=== PATIENT | male | born 1975 | race Caucasian/White ===

== ENCOUNTER 2019-02-22 14:29 | Inpatient (IN) ==
[2019-02-22] MEDS: SODIUM CHLORIDE 0.9% 1000ML 1,000 ML IV SCH ×5 (17:30→23:54)
--- NOTE | 2019-02-22 17:36 | Critical Care Consultation ---
Date of Consultation February 22, 2019 Assessment & Plan (1) Hypotension: Impression: 1. Acute renal failure, I am suspecting obstructive uropathy in a patient who has been started on monoamino oxidase inhibitor. 2. The patient had a Loaiza catheter placed at the other hospital, I am not sure how much residual the patient did have upon initial insertion. 3. Schizophrenia treated with dopamine agonist, MAO inhibitor, and duloxetine while he is developing renal failure, the results of the imbalance and dizziness could be related to accumulation of these medications as well. 4. Possible superimposed UTI, results of the UA from the other facility supports UTI. 5. So far no significant acidosis or hyperkalemia on the labs from the other facility. Plan: 1. continue with IV fluid. 2. I will hold off mono amino oxidase inhibitor. 3. Keep Loaiza catheter in place. 4. Ceftriaxone for possible UTI. 5. Continue with IV fluid with normal saline at 150 an hour. 6. Taper norepinephrine to off. 7. Renal consult. 8. DVT prophylaxis. 9. Obtain stat labs and chest x-ray. Case discussed with the staff in details, critical care time spent with the patient was 45 minutes. History of Present Illness Reason for Consultation: Acute renal failure Requesting Physician: Dr. Grande Attending Physician: Ruy Grande MD History of Present Illness Dear Dr. Grande: Thank you for the kind referral Mr. Velasquez to critical care service. This is 44-year-old gentleman with history of morbid obesity, schizophrenia, living with his parents, recently the patient had been started on monoamino oxidase inhibitor with Valbenazine, the patient also was treated with duloxetine as well, the patient for the past 2 weeks initially after starting the medication did not have any symptoms however only for the past week started having dizziness and unable to maintain his upright position, he did have what appeared to be syncopal episodes of multiple times and he fell where he did have pain in his back and his neck from falling according to him. The patient brought to [facility] by his parents where he was evaluated and found to be in acute renal failure. The patient started on aggressive fluid resuscitation with almost 8 L of fluid received over his ER stay, the patient's blood pressure was on the low side and has to be started on norepinephrine, the patient was transferred to our institution as they do not have nephrology service. When I interviewed the patient, the patient denies any urinary habits disturbance, he did not feel thirsty, he felt unable to stand up or stay in upright position for the past week or so, no nausea or vomiting reported, his loss of consciousness was quickly recovered after he become in supine position flat on the floor, no chest pain was reported, no swelling in his lower extremities no abdominal pain, and he denies any diarrhea. Review of system otherwise was unremarkable. He did not have any bruises on his skin and no rash. 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 Physical Exam Physical Exam: Physical exam reveals well-built gentleman, does not appear to be in any distress, he has no nystagmus or pupil asymmetry, dry mucosa noted, no JVD, he was wearing hard neck collar which was removed, heart examination S1-S2 regular rate and rhythm, distant breath sounds bilaterally, abdomen is benign, no edema in the periphery, Loaiza catheter in place, neurologically he has no tremor or asterixis. No skin rash. Results & Data Vital Signs (Past 12 Hours) Vital Signs Temp Pulse Resp BP Pulse Ox 02/22/19 17:15 37.2 C 88 20 129/72 91 Laboratory Results Labs from outside hospital showed leukocytosis 16,000, BUN and creatinine with creatinine of 8. Potassium and bicarb has been maintained. Diagnostic Findings I do not have imaging on him at this point, pending further evaluation.
--- NOTE | 2019-02-22 17:58 | XRay Report ---
XR chest 1V portable CLINICAL HISTORY: fluid overload dyspnea COMPARISON STUDY: No previous studies for comparison. FINDINGS: The bones soft tissues and hemidiaphragms are normal. The cardiomediastinal silhouette is n ormal. The lungs are clear. The pulmonary vasculature is normal. IMPRESSION: Negative chest. The above report was generated using voice recognition software. It may contain grammatical, syntax or spelling errors. Electronically signed by: Cl Galvez M.D. 02/22/2019 5:56 PM
--- NOTE | 2019-02-22 18:11 | History & Physical Report ---
Date of Service February 22, 2019 Assessment & Plan (1) Acute renal failure: Unclear cause, though patient appeared clinically dry at [facility] ED. BUN:Cr ratio was 10:1, and FeNa was 2.0%, both indicating intrinsic disease. Renal u/s on 02/22 at [facility] did not show hydronephrosis. On admission, there was no need for urgent dialysis, and he had good urine output. - Received 8L IV fluids at [facility] - Continue IV fluids per pulm/cc - Nephrology consult - Urine eosinophils - CK (some concern for neuromalignant syndrome from his antipsychotics) (2) Hypotension: Per the ED provider at [facility], on admission, his systolic BP was in the 60s. After 8L IV fluids, he still had SBP in the 80s, and was started on pressors. Presently on 0.05 mcg/kg/min of Levophed with BP of 130/80. - Ddx includes his MAOI (noted side effect of all MAOIs), significant dehydration, septic shock from possible UTI or other infectious source. - Continue pressors, wean as able - Hold Ingrezza - CXR pending - Follow up cultures from [facility] (urine and blood) (3) UTI (urinary tract infection): UA on 02/22 at [facility] showed signs of urinary infection. - Repeat UA here - Follow up [facility] culture - Ceftriaxone (4) Hypertension: Hold lisinopril while hypotensive. (5) Schizophrenia: On variety of meds as outpatient. - Continue home meds apart from antipsychotic & valbenazine (Ingrezza) - Monitor schizophrenia symptoms (6) DVT prophylaxis: SCDs - Low risk per admission calculator History of Present Illness Primary Care Provider: Ramiro Rubio 44-year-old male with a history of depression and schizophrenia who presents with hypotension and acute renal failure. The patient notes that he has been in his normal state of health, and was started on Ingrezza approximately 2 weeks ago. This was started for his lower extremity dyskinesia which is a result of his antipsychotic medications. Approximately 1 week ago, he reports feeling increasingly tired, fatigued, dizzy, and has had several falls with possible loss of conscious. He also reports stiff muscles and subjective fevers at home. He denies any exacerbating or ameliorating factors. He feels his p.o. intake may have been lower over the last few days. He reports no shortness of breath, no chest pain, no nausea, no vomiting, no other major concerns. In the [facility] ED, he was noted to have a Cr of 8.5 from normal. His SBP was in the 60s in the ED. He received upwards of 8L of IV fluids with some urine output. After the IV fluids, his BP was still only in the 80s, and he was started on Levophed. Allergies Allergy/AdvReac Type Severity Reaction Status Date / Time Penicillins Allergy Unknown UNKNOWN Unverified 12/03/09 04:18 Home Medications Home Medications Medication Instructions Recorded Confirmed Type Prilosec OTC 20 mg PO DAILY 02/22/19 02/22/19 History aspirin 81 mg PO DAILY 02/22/19 02/22/19 History bupropion HCl 150 mg PO DAILY 02/22/19 02/22/19 History diphenhydramine HCl 25 mg PO TID PRN 02/22/19 02/22/19 History duloxetine 30 mg PO HS 02/22/19 02/22/19 History duloxetine 60 mg PO HS 02/22/19 02/22/19 History gabapentin 800 mg PO TID 02/22/19 02/22/19 History guanfacine 2 mg PO QAM 02/22/19 02/22/19 History lisinopril 20 mg PO DAILY 02/22/19 02/22/19 History oxycodone 5 mg PO Q12H PRN 02/22/19 02/22/19 History oxycodone myristate [Xtampza ER] 13.5 mg PO Q12H PRN 02/22/19 02/22/19 History propranolol 80 mg PO DAILY 02/22/19 02/22/19 History quetiapine 400 mg PO HS 02/22/19 02/22/19 History Past Med/Surg History Medical History Depression Schizophrenia Family History Father Hypertension Social History Preferred Language: [place] African Communication Ability: Effective 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 Beliefs That Will Affect Care: None Current Living Situation: Parent Other Information That Helps Us Care for You: No Feels Safe at Home: Yes Safety Concerns: Feels Safe At This Time Smoking Status: Former smoker Hx Alcohol Use: No Hx Substance Use: No Review of Systems Constitutional: + fever, + body aches, + fatigue, + weakness and + anorexia; no chills and no sweats Eyes: no diplopia Ear, Nose, Mouth, Throat: no ear trauma, no nasal discharge and no dental pain Respiratory: no cough, no chest congestion and no dyspnea Cardiovascular: no chest pain, no dyspnea on exertion, no palpitations and no syncope Gastrointestinal: no abdominal pain, no belching, no constipation, no diarrhea/loose stools, no blood in stools and no melena Musculoskeletal: no back pain, no joint pain and no muscle weakness Integumentary: no rash, no skin ulcer and no erythema Neurologic: no generalized weakness, no loss of sensation, no numbness and no paresthesia Psychiatric: no depression and no anxiety Endocrine: no fatigue, no polydipsia and no polyphagia Physical Exam Constitutional: WD/WN, vitals as above Eyes: EOM intact bilaterally; no conjunctival abnormality ENMT: external ear and nose normal, oropharynx normal Neck: trachea midline, no thyromegaly normal visual inspection Respiratory: normal respiratory effort, lungs clear to auscultation no respiratory distress Cardiovascular: RRR, no murmur, no edema Gastrointestinal (Abdomen): Inspection/Auscultation: abdomen normal to inspection; abdomen not distended Musculoskeletal: no cyanosis or clubbing, extremities motor strength 5/5 Skin: no rashes, warm and dry Neurologic: moves all extremities and awake Psychiatric: Orientation: alert, oriented to person and cooperative Results & Data Vital Signs (Past 12 Hours) Vital Signs Temp Pulse Resp BP Pulse Ox 02/22/19 17:30 97 H 132/71 02/22/19 17:15 37.2 C 88 20 129/72 91
[2019-02-22] MEDS ORDERED: NOREPINEPHRINE BIT INJ 8 MG in DEXTROSE 5% 500 ML IV SCH (18:15)
[2019-02-22 18:52] LABS: Appearance Urine Clear (Clear); Bacteria Urine Automated Negative (Negative); Bilirubin Urine Negative (Negative); Blood Urine 2+ (Negative); Color Urine Yellow; Glucose Urine UA Negative (Negative); Ketones Urine Negative (Negative); Leukocyte Esterase Urine Negative (Negative); Nitrite Urine Negative (Negative); Protein Urine Negative (Negative); RBC Urine Automated 0-4 /hpf (0-4); Specific Gravity Urine 1.012 (1.000-1.030); Urobilinogen Urine Negative (Negative)
[2019-02-22 19:04] LABS: Basophils # (auto) 0.02 K/uL (0-0.2); Basophils % (auto) 0.2 %; Eosinophils # (auto) 0.27 K/uL (0-0.5); Eosinophils % (auto) 2.4 %; Hematocrit (blood only) 44.7 % (42-52); Hemoglobin 15.6 g/dL (14.0-18.0); Immature Granulocytes # (auto) 0.08 K/uL (0.00-0.02); Immature Granulocytes % (auto) 0.7 %; Lymphocytes # (auto) 2.46 K/uL (1.2-3.4); Lymphocytes % (auto) 22.3 %; Mean Corpuscular Volume 88.3 fL (80-100); Mean Platelet Volume 10.2 fL (7.4-10.4); Monocytes # (auto) 1.25 K/uL (0.11-0.59); Monocytes % (auto) 11.3 %; Neutrophils # (auto) 6.96 K/uL (1.4-6.5); Neutrophils % (auto) 63.1 %; Platelet Count 139 K/uL (130-400); RDW Coefficient of Variation 13.8 % (11.5-14.5); RDW Standard Deviation 44.4 fL (36.4-46.3); Red Blood Count 5.06 M/uL (4.7-6.1); White Blood Count 11.04 K/uL (4.8-10.8)
[2019-02-22 19:05] LABS: Mean Corpuscular Hgb Conc 34.9 g/dL (32-36)
[2019-02-22 20:00] LABS: BUN Creatinine Ratio 10.7 (10-20); Creatinine Clr Calc Pharmacy 20.3 ml/min; Est GFR (African American) 11.9; Est GFR (Non-African American) 10.3; Potassium 5.7 mmol/L (3.5-5.1)
[2019-02-22] MEDS ORDERED: NovoLIN-R INSULIN PER UNIT CHARGE IV STA (20:07)
[2019-02-22] MEDS ORDERED: INSULIN HUMAN REGULAR PER UNIT 10 UNITS in SYRINGE 9.9 ML IV ONE (20:30)
[2019-02-22] MEDS ORDERED: DEXTROSE 50% 50 ML SYRINGE IV ONE (20:30)
[2019-02-22] MEDS ORDERED: CALCIUM GLUCONATE 10% 2,000 MG in SODIUM CHLORIDE 0.9% 50 ML IV ONE (20:30)
[2019-02-22] MEDS: GABAPENTIN 600 MG TAB PO SCH (21:54)
[2019-02-22] MEDS: DULOXETINE HCL 30 MG CAP PO SCH (21:54)
[2019-02-23 00:21] LABS: BUN Creatinine Ratio 12.1 (10-20); Calcium 7.5 mg/dl (8.5-10.1); Creatinine Clr Calc Pharmacy 26.2 ml/min; Est GFR (African American) 16.1; Est GFR (Non-African American) 13.9; Phosphorus 4.8 mg/dl (2.5-4.9)
[2019-02-23] MEDS: SODIUM CHLORIDE 0.9% 1000ML 1,000 ML IV SCH ×11 (00:24→08:22)
[2019-02-23 04:51] LABS: Hematocrit (blood only) 38.5 % (42-52); Hemoglobin 13.4 g/dL (14.0-18.0); Mean Corpuscular Hgb Conc 34.8 g/dL (32-36); Mean Corpuscular Volume 88.7 fL (80-100); Mean Platelet Volume 9.9 fL (7.4-10.4); Platelet Count 146 K/uL (130-400); RDW Coefficient of Variation 13.8 % (11.5-14.5); RDW Standard Deviation 44.9 fL (36.4-46.3); Red Blood Count 4.34 M/uL (4.7-6.1); White Blood Count 10.01 K/uL (4.8-10.8)
[2019-02-23 05:17] LABS: BUN Creatinine Ratio 14.5 (10-20); Creatinine Clr Calc Pharmacy 40.4 ml/min; Est GFR (African American) 27.3; Est GFR (Non-African American) 23.6; Magnesium 1.6 mg/dl (1.8-2.4); Phosphorus 2.6 mg/dl (2.5-4.9); Potassium 5.7 mmol/L (3.5-5.1)
[2019-02-23] MEDS ORDERED: DESMOPRESSIN ACETATE 4 MCG in SODIUM CHLORIDE 0.9% 50 ML IV STA (06:22)
[2019-02-23] MEDS ORDERED: CALCIUM GLUCONATE 10% 2,000 MG in SODIUM CHLORIDE 0.9% 50 ML IV STA (06:39)
[2019-02-23] MEDS: MAGNESIUM SULFATE / D5W 1 GM/100 ML BAG IV SCH ×2 (07:35→08:21)
[2019-02-23] MEDS: DULOXETINE HCL 30 MG CAP PO SCH ×2 (07:37→20:23)
[2019-02-23] MEDS: ASPIRIN 81 MG ECTAB PO SCH (07:37)
[2019-02-23] MEDS: BuPROPion XL 150 MG TABCR PO SCH (07:37)
[2019-02-23] MEDS: GABAPENTIN 600 MG TAB PO SCH ×3 (07:38→20:23)
[2019-02-23] MEDS: ACETAMINOPHEN 325 MG TAB PO PRN (07:39)
[2019-02-23] MEDS: SODIUM CHLORIDE 0.45 % 1,000 ML IV SCH ×3 (08:39→23:22)
[2019-02-23 09:10] LABS: BUN Creatinine Ratio 15.7 (10-20); Calcium 7.3 mg/dl (8.5-10.1); Creatinine Clr Calc Pharmacy 49.5 ml/min; Est GFR (African American) 35.6; Est GFR (Non-African American) 30.8; Potassium 5.4 mmol/L (3.5-5.1)
--- NOTE | 2019-02-23 09:57 | Nephrology Consultation ---
Date of Consultation February 23, 2019 Assessment & Plan (1) Polyuria: - DDAVP provided this morning at 6 AM - Urine output does not seem to have changed in response to medication - Polydipsia and large volume oral intake denied - Suspect polyuria may be related to post obstructive diuresis with subsequent solute diuresis from large volume saline replacement - IVF switched to 1/2 NS this AM - Suggest continuing at a reduced rate of 100 ml/hr - Allow serum sodium to approach 145 mmol/L - Repeat blood work and urine studies at noon (2) Acute renal failure: - Initial presentation reported as prerenal due to dehydration - Volume status currently appears euvolemic - Possible component of obstructive nephropathy or prerenal which is improving, possible superimposed ATN - Loaiza to gravity - Document strict I/O's - Repeat metabolic profile at noon - Low potassium diet - If HCO3 continues to fall consider replacement - CK slightly elevated and given symptoms we cannot completely exclude neuromalignant syndrome or medication reaction - Hold lisinopril (3) Hypotension: - Hold Ingrezza - Hold guanfacine and lisinopril as well as propranolol - (4) UTI (urinary tract infection): - Culture results pending - Ceftriaxone (5) Schizophrenia: - Quetiapine and Ingrezza held - Consider psych consult to assist with management as patient medically stabilizes History of Present Illness Reason for Consultation: ABI, polyuria Requesting Physician: Ruy Grande MD Attending Physician: Curtis Rosas MD History of Present Illness Mr. Caesar Velasquez is a 44-year-old male who was seen and evaluated in the ICU this morning. The case was discussed in detail with Dr. Medrano. Mr. Velasquez's medical history is notable for hypertension, depression, and schizophrenia. He was transferred to [facility] yesterday evening from the ER at [facility] due to ABI. There are no weekend nephrology services available at [place]. The patient initially presented to the ED with fatigue, dizziness, and several falls. He notes that he has experienced dizziness and unsteadiness on his feet for several weeks. He denies any significant injury from falling. He has not injured his head. He has not lost consciousness. Ingrezza was started approximately 2 weeks ago. Reportedly, the medication was started for his lower extremity dyskinesia. Home medications include multiple psychiatric therapies including duloxetine, bupropion, and quetiapine. Several other medications for blood pressure and dyskinesia which also may contribute to some of his symptoms include propranolol, guanfacine, and lisinopril. His symptoms have been worsening over hte past week. Caesar also reported stiff muscles and subjective fevers at home. The patient denies significant polydipsia at home. He notes that his appetite has been reduced. His urine output was reduced prior to presentation to the ED. Daily fluid intake typically includes one pot of coffee per day as well as 1-2 glasses of juice. He notes the urge to void with a sense of some urinary retention. He also described some lightheadedness associated with voiding urine. In the [facility] ED, he was noted to have a Cr of 8.5 from normal. Loaiza catheter was placed with a reported history of 1 L of urine. His SBP was in the 60s in the ED. He received upwards of 8L of IV fluids. After the IV fluids, he remained hypotensive, and he was started on Levophed prior to transfer. Levophed was weaned off following additional IVF replacement in the ICU at [facility]. Agressive IVF replacement has been continued with NSS since admission. Urine output has remained polyuric with a total of 20 L documented since admission. Urine osmolality yesterday evening was 248. IVF has been provided to match UOP. An additional 10 + liters have been provided since admission. Levophed was briefly restarted overnight and weaned off around midnight. Blood pressure remains low but acceptable off vasopressor support this morning. Telemetry demonstrating sinus rhythm at approximately 100-110 bpm. Ron feels reasonably well this morning. He continues to experiences some lightheadedness. Loaiza is draining dilute appearing urine. He denies any fevers or chills overnight. He was started on ceftriaxone for possible UTI. Culture is pending. Repeat urine studies obtained at [facility] were acellular and +blood but otherwise bland. UA was notable for +blood. Microscopy was acellular. CPK was slightly elevated at 561. Creatinine has improved to 2.5 mg/dL. Serum potassium remains slightly elevated at 5.4 mmol/L. HCO3 is slightly low at 18. Urine sodium was elevated at 92 mmol/L. Allergies Allergy/AdvReac Type Severity Reaction Status Date / Time Penicillins Allergy Unknown UNKNOWN Unverified 12/03/09 04:18 Home Medications Home Medications Medication Instructions Recorded Confirmed Type Ingrezza 80 mg PO DAILY 02/22/19 02/22/19 History Prilosec OTC 20 mg PO DAILY 02/22/19 02/22/19 History aspirin 81 mg PO DAILY 02/22/19 02/22/19 History bupropion HCl 150 mg PO DAILY 02/22/19 02/22/19 History diphenhydramine HCl 25 mg PO TID PRN 02/22/19 02/22/19 History duloxetine 30 mg PO HS 02/22/19 02/22/19 History duloxetine 60 mg PO HS 02/22/19 02/22/19 History gabapentin 800 mg PO TID 02/22/19 02/22/19 History guanfacine 2 mg PO QAM 02/22/19 02/22/19 History lisinopril 20 mg PO DAILY 02/22/19 02/22/19 History oxycodone 5 mg PO Q12H PRN 02/22/19 02/22/19 History oxycodone myristate [Xtampza ER] 13.5 mg PO Q12H PRN 02/22/19 02/22/19 History propranolol 80 mg PO DAILY 02/22/19 02/22/19 History quetiapine 400 mg PO HS 02/22/19 02/22/19 History Patient History Medical History Depression Schizophrenia Family History Father Hypertension Social History Preferred Language: Trinidadian Communication Ability: Effective 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 Beliefs That Will Affect Care: None Current Living Situation: Parent Other Information That Helps Us Care for You: No Feels Safe at Home: Yes Safety Concerns: Feels Safe At This Time Smoking Status: Former smoker Hx Alcohol Use: No Hx Substance Use: No Review of Systems Review of Systems: All systems reviewed & are unremarkable except as noted in HPI & below Physical Exam Constitutional: + obese; no acute distress and not edematous Eyes: no conjunctival abnormality and no corneal abnormality ENMT: external ear and nose normal, oropharynx normal Neck: trachea midline, no thyromegaly normal visual inspection Respiratory: normal respiratory effort, lungs clear to auscultation no respiratory distress Cardiovascular: Rate/Rhythm: + tachycardic Heart Sounds: normal S1 and normal S2; no murmur Vessels: no JVD Extremities: normal capillary refill; no edema Gastrointestinal (Abdomen): Inspection/Auscultation: abdomen normal to i nspection; abdomen not distended Musculoskeletal: no cyanosis or clubbing, extremities motor strength 5/5 Skin: no rashes, warm and dry Neurologic: moves all extremities and awake Psychiatric: Orientation: alert, oriented to person and cooperative Genitourinary: Loaiza draining dilute urine Results & Data Vital Signs (Past 12 Hours) Vital Signs Temp Pulse Resp BP Pulse Ox 02/23/19 09:00 107 H 22 100/50 L 97 02/23/19 08:00 37.1 C 108 H 19 119/73 98 02/23/19 07:00 107 H 21 99/43 L 97 02/23/19 06:00 103 H 19 126/68 98 02/23/19 05:31 104 H 22 126/65 02/23/19 05:00 104 H 23 02/23/19 04:01 108 H 13 124/75 02/23/19 04:00 37.3 C 107 H 16 97 02/23/19 03:01 98 H 17 132/78 02/23/19 03:00 97 H 21 02/23/19 02:30 100 H 23 111/71 97 02/23/19 02:01 101 H 19 132/88 96 02/23/19 02:00 101 H 19 96 02/23/19 01:37 100 H 19 140/117 H 98 02/23/19 01:01 100 H 19 131/55 L 96 02/23/19 01:00 100 H 17 98 02/23/19 00:32 100 H 16 128/70 98 02/23/19 00:00 96 H 26 H 125/67 97 02/22/19 23:42 37.5 C 96 H 23 144/57 H 95 02/22/19 23:01 37.5 C 97 H 22 117/61 98 02/22/19 23:00 96 H 16 94 02/22/19 22:31 98 H 18 120/63 97 02/22/19 22:30 100 H 19 96 02/22/19 22:01 97 H 19 140/61 94 02/22/19 22:00 97 H 18 97 Laboratory Results Laboratory Results - last 24 hr 02/22/19 02/22/19 02/22/19 17:00 17:27 17:51 WBC RBC Hgb Hct MCV MCH MCHC RDW Std Deviation RDW Coeff of Kevon Plt Count MPV Immature Gran % (Auto) Neut % (Auto) Lymph % (Auto) [place] % (Auto) Eos % (Auto) Baso % (Auto) Immature Gran # (Auto) Neut # (Auto) Lymph # (Auto) [place] # (Auto) Eos # (Auto) Baso # (Auto) Sodium Potassium Chloride Carbon Dioxide Anion Gap BUN Creatinine Est Cr Clr Drug Dosing Est GFR ( Amer) Est GFR (Non-Af Amer) BUN/Creatinine Ratio Glucose POC Glucose 126 H Osmolality Calcium Phosphorus Magnesium Total Creatine Kinase Specimen Hemolysis Urine Color Urine Appearance Urine pH Ur Specific [place] Urine Protein Urine Glucose (UA) Urine Ketones Urine Blood Urine Nitrite Urine Bilirubin Urine Urobilinogen Ur Leukocyte Esterase Urine WBC (Auto) Urine RBC (Auto) U Hyaline Cast (Auto) U Epithel Cells (Auto) Urine Bacteria (Auto) Urine Osmolality Ur Random Creatinine Ur Random Sodium Ur Random Potassium Ur Random Chloride Urine Sodium 70 Urine Potassium 1.4 Urine Chloride 62 Nasal Screen MRSA (PCR) Negative 02/22/19 02/22/19 02/22/19 17:51 17:51 17:51 WBC RBC Hgb Hct MCV MCH MCHC RDW Std Deviation RDW Coeff of Kevon Plt Count MPV Immature Gran % (Auto) Neut % (Auto) Lymph % (Auto) [place] % (Auto) Eos % (Auto) Baso % (Auto) Immature Gran # (Auto) Neut # (Auto) Lymph # (Auto) [place] # (Auto) Eos # (Auto) Baso # (Auto) Sodium Potassium Chloride Carbon Dioxide Anion Gap BUN Creatinine Est Cr Clr Drug Dosing Est GFR ( Amer) Est GFR (Non-Af Amer) BUN/Creatinine Ratio Glucose POC Glucose Osmolality Calcium Phosphorus Magnesium Total Creatine Kinase Specimen Hemolysis Urine Color Yellow Urine Appearance Clear Urine pH 5.0 Ur Specific [place] 1.012 Urine Protein Negative Urine Glucose (UA) Negative Urine Ketones Negative Urine Blood 2+ H Urine Nitrite Negative Urine Bilirubin Negative Urine Urobilinogen Negative Ur Leukocyte Esterase Negative Urine WBC (Auto) 1-5 Urine RBC (Auto) 0-4 U Hyaline Cast (Auto) 1-5 U Epithel Cells (Auto) 5-10 H Urine Bacteria (Auto) Negative Urine Osmolality Ur Random Creatinine 23.4 Ur Random Sodium 70 Ur Random Potassium Ur Random Chloride Urine Sodium Urine Potassium Urine Chloride Nasal Screen MRSA (PCR) 02/22/19 02/22/19 02/22/19 18:56 19:16 23:10 WBC 11.04 H RBC 5.06 Hgb 15.6 Hct 44.7 MCV 88.3 MCH 30.8 MCHC 34.9 RDW Std Deviation 44.4 RDW Coeff of Kevon 13.8 Plt Count 139 MPV 10.2 Immature Gran % (Auto) 0.7 Neut % (Auto) 63.1 Lymph % (Auto) 22.3 Alpine % (Auto) 11.3 Eos % (Auto) 2.4 Baso % (Auto) 0.2 Immature Gran # (Auto) 0.08 H Neut # (Auto) 6.96 H Lymph # (Auto) 2.46 Alpine # (Auto) 1.25 H Eos # (Auto) 0.27 Baso # (Auto) 0.02 Sodium 137 Potassium 5.7 H Chloride 109 H Carbon Dioxide 18 L Anion Gap 10.0 BUN 66 H Creatinine 6.12 H* Est Cr Clr Drug Dosing 20.3 Est GFR ( Amer) 11.9 Est GFR (Non-Af Amer) 10.3 BUN/Creatinine Ratio 10.7 Glucose 109 H POC Glucose Osmolality Calcium 7.0 L Phosphorus Magnesium Total Creatine Kinase 561 H Specimen Hemolysis Urine Color Urine Appearance Urine pH Ur Specific [place] Urine Protein Urine Glucose (UA) Urine Ketones Urine Blood Urine Nitrite Urine Bilirubin Urine Urobilinogen Ur Leukocyte Esterase Urine WBC (Auto) Urine RBC (Auto) U Hyaline Cast (Auto) U Epithel Cells (Auto) Urine Bacteria (Auto) Urine Osmolality Ur Random Creatinine Ur Random Sodium 92 Ur Random Potassium 2.0 Ur Random Chloride 92 Urine Sodium Urine Potassium Urine Chloride Nasal Screen MRSA (PCR) 02/22/19 02/22/19 02/22/19 23:10 23:42 23:42 WBC RBC Hgb Hct MCV MCH MCHC RDW Std Deviation RDW Coeff of Kevon Plt Count MPV Immature Gran % (Auto) Neut % (Auto) Lymph % (Auto) [place] % (Auto) Eos % (Auto) Baso % (Auto) Immature Gran # (Auto) Neut # (Auto) Lymph # (Auto) [place]pine # (Auto) Eos # (Auto) Baso # (Auto) Sodium 138 Potassium Chloride 110 H Carbon Dioxide 21 Anion Gap 6.0 BUN 58 H Creatinine 4.76 H* D Est Cr Clr Drug Dosing 26.2 Est GFR ( Amer) 16.1 Est GFR (Non-Af Amer) 13.9 BUN/Creatinine Ratio 12.1 Glucose 84 POC Glucose Osmolality 307 H Calcium 7.5 L Phosphorus 4.8 Magnesium Total Creatine Kinase Specimen Hemolysis Urine Color Urine Appearance Urine pH Ur Specific [place] Urine Protein Urine Glucose (UA) Urine Ketones Urine Blood Urine Nitrite Urine Bilirubin Urine Urobilinogen Ur Leukocyte Esterase Urine WBC (Auto) Urine RBC (Auto) U Hyaline Cast (Auto) U Epithel Cells (Auto) Urine Bacteria (Auto) Urine Osmolality 248 L Ur Random Creatinine Ur Random Sodium Ur Random Potassium Ur Random Chloride Urine Sodium Urine Potassium Urine Chloride Nasal Screen MRSA (PCR) 02/23/19 02/23/19 02/23/19 00:45 04:39 04:39 WBC 10.01 RBC 4.34 L Hgb 13.4 L Hct 38.5 L MCV 88.7 MCH 30.9 MCHC 34.8 RDW Std Deviation 44.9 RDW Coeff of Kevon 13.8 Plt Count 146 MPV 9.9 Immature Gran % (Auto) Neut % (Auto) Lymph % (Auto) [place] % (Auto) Eos % (Auto) Baso % (Auto) Immature Gran # (Auto) Neut # (Auto) Lymph # (Auto) [place] # (Auto) Eos # (Auto) Baso # (Auto) Sodium 142 Potassium 5.7 H Chloride 120 H Carbon Dioxide 19 L Anion Gap 3.0 BUN 45 H Creatinine 3.08 H D Est Cr Clr Drug Dosing 40.4 Est GFR ( Amer) 27.3 Est GFR (Non-Af Amer) 23.6 BUN/Creatinine Ratio 14.5 Glucose 115 H POC Glucose Osmolality Calcium 7.0 L Phosphorus 2.6 D Magnesium 1.6 L Total Creatine Kinase Specimen Hemolysis Urine Color Urine Appearance Urine pH Ur Specific [place] Urine Protein Urine Glucose (UA) Urine Ketones Urine Blood Urine Nitrite Urine Bilirubin Urine Urobilinogen Ur Leukocyte Esterase Urine WBC (Auto) Urine RBC (Auto) U Hyaline Cast (Auto) U Epithel Cells (Auto) Urine Bacteria (Auto) Urine Osmolality Ur Random Creatinine Ur Random Sodium Ur Random Potassium Ur Random Chloride Urine Sodium Urine Potassium Urine Chloride Nasal Screen MRSA (PCR) 02/23/19 08:39 WBC RBC Hgb Hct MCV MCH MCHC RDW Std Deviation RDW Coeff of Kevon Plt Count MPV Immature Gran % (Auto) Neut % (Auto) Lymph % (Auto) [place] % (Auto) Eos % (Auto) Baso % (Auto) Immature Gran # (Auto) Neut # (Auto) Lymph # (Auto) [place] # (Auto) Eos # (Auto) Baso # (Auto) Sodium 144 Potassium 5.4 H Chloride 120 H Carbon Dioxide 18 L Anion Gap 6.0 BUN 39 H Creatinine 2.47 H D Est Cr Clr Drug Dosing 49.5 Est GFR ( Amer) 35.6 Est GFR (Non-Af Amer) 30.8 BUN/Creatinine Ratio 15.7 Glucose 141 H POC Glucose Osmolality Calcium 7.3 L Phosphorus Magnesium Total Creatine Kinase Specimen Hemolysis Urine Color Urine Appearance Urine pH Ur Specific [place] Urine Protein Urine Glucose (UA) Urine Ketones Urine Blood Urine Nitrite Urine Bilirubin Urine Urobilinogen Ur Leukocyte Esterase Urine WBC (Auto) Urine RBC (Auto) U Hyaline Cast (Auto) U Epithel Cells (Auto) Urine Bacteria (Auto) Urine Osmolality Ur Random Creatinine Ur Random Sodium Ur Random Potassium Ur Random Chloride Urine Sodium Urine Potassium Urine Chloride Nasal Screen MRSA (PCR)
[2019-02-23 12:30] LABS: Creatinine Urine Random 45.4 mg/dl
--- NOTE | 2019-02-23 12:45 | Critical Care Progress Note ---
Date of Service February 23, 2019 Assessment & Plan (1) Hypotension: Impression: 1. Acute renal failure, postobstructive uropathy cannot be excluded, the patient has over 1 L of urine output after insertion of the Loaiza catheter initially. 2. 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 3. Schizophrenia treated with dopamine agonist, MAO inhibitor, and duloxetine, with development of renal failure, dose adjustment was made, and MAO inhibitors was stopped due to DI. 4. Due to urinary tension, cannot exclude UTI. Treated with antibiotic empirically. 5. Stable electrolytes, mild hypomagnesemia and hypocalcemia both repleted. 6. Restless leg syndrome. Plan: 1. Aggressive IV fluid replacement, the patient did require at some point over 1 L/h of normal saline. Developed hyperchloremia, IV fluids changed to half- normal saline. 2. Continue to hold off MAO inhibitors. 3. Keep Loaiza catheter in place for critical I's and O's. 4. Ceftriaxone for possible UTI. 5. Desmopressin was given 4 mics IV x1 dose, does not seem to slow down his urine output. 6. Discontinue norepinephrine drip. 7. Renal consult, appreciate Dr. Baldwin input. 8. DVT prophylaxis, GI prophylaxis. 9. Continue checking chemistry with electrolytes every 4 hours. 10. Despite slowing down the IV infusion to 100 and hour, the patient put out in the past hour 1600 mL of urine. I am concerned about nephrogenic DI. 11. I will restart the patient on oxycodone as needed as he has been on it before. 12. I will start the patient on Seroquel 100 mg p.o. 3 times daily. Dose adjusted to his renal failure. His kidney function is improving with creatinine dropping down from 8-2.5. 13. I will start the patient on higher dose of gabapentin 600 mg p.o. 3 times daily. 14. I will start the patient on pramipexole for his restless leg syndrome 0.5 mg every morning. It is another dopamine agonist. 15. Psych consult for optimal treatment of his schizophrenia, hopefully he will not have acute psychosis episode. My understanding he was difficult to manage as an outpatient. Case discussed with the staff in details, critical care time spent with the patient was 60 minutes. Subjective Events overnight noted, the patient does have significant polyuria, his urine output has been over 1.5 L/h. Requiring total of 18 L of IV normal saline to match his approximately urine output. The patient did not feel any dehydration, he continued to be in stable mood, he started having symptoms of restless leg which she has before, denies any pain, no nausea or vomiting, tolerating oral intake, his electrolytes has been repleted including calcium and magnesium twice overnight, serial labs showed improvement in his BUN and creatinine. Review of Systems Review of Systems: Review of system apart from the above was otherwise unremarkable. Including 10 systems. Physical Exam Physical Exam: Vital signs are stable, S1-S2 regular rate and rhythm, 93% on room air. Lungs are clear, abdomen is benign, no edema in the periphery, neurologically he is intact, no oral lesions, psychiatrically remains in stable mood, although he is showing signs of restlessness. No skin rash. Results & Data Vital Signs (Past 12 Hours) Vital Signs Temp Pulse Resp BP Pulse Ox 02/23/19 10:00 104 H 21 126/63 93 02/23/19 09:00 107 H 22 100/50 L 97 02/23/19 08:00 37.1 C 108 H 19 119/73 98 02/23/19 07:00 107 H 21 99/43 L 97 02/23/19 06:00 103 H 19 126/68 98 02/23/19 05:31 104 H 22 126/65 02/23/19 05:00 104 H 23 02/23/19 04:01 108 H 13 124/75 02/23/19 04:00 37.3 C 107 H 16 97 02/23/19 03:01 98 H 17 132/78 02/23/19 03:00 97 H 21 02/23/19 02:30 100 H 23 111/71 97 02/23/19 02:01 101 H 19 132/88 96 02/23/19 02:00 101 H 19 96 02/23/19 01:37 100 H 19 140/117 H 98 02/23/19 01:01 100 H 19 131/55 L 96 02/23/19 01:00 100 H 17 98
[2019-02-23 12:50] LABS: BUN Creatinine Ratio 16.7 (10-20); Calcium 7.2 mg/dl (8.5-10.1); Creatinine Clr Calc Pharmacy 60.9 ml/min; Est GFR (African American) 45.7; Est GFR (Non-African American) 39.5; Magnesium 1.8 mg/dl (1.8-2.4)
[2019-02-23] MEDS: OXYCODONE HCL IR 5 MG TAB (IMMEDIATE RELEASE) PO PRN ×2 (13:18→22:20)
[2019-02-23] MEDS: PRAMIPEXOLE DIHYDROCHLO 0.5 MG TAB PO SCH (13:18)
[2019-02-23] MEDS: QUETIAPINE FUMARATE 100 MG TABLET PO SCH ×2 (13:18→20:24)
[2019-02-23] MEDS ORDERED: GABAPENTIN 600 MG TAB PO SCH (14:00)
[2019-02-23 20:56] LABS: BUN Creatinine Ratio 16.5 (10-20); Calcium 7.4 mg/dl (8.5-10.1); Creatinine Clr Calc Pharmacy 77.9 ml/min; Est GFR (African American) 61.7; Est GFR (Non-African American) 53.2; Potassium 4.5 mmol/L (3.5-5.1)
--- NOTE | 2019-02-23 21:29 | Hospitalist Progress Note ---
Date of Service February 23, 2019 Assessment & Plan (1) Acute renal failure: Unclear cause, though patient appeared clinically dry at [facility] ED. BUN:Cr ratio was 10:1, and FeNa was 2.0%, both indicating intrinsic disease. Renal u/s on 02/22 at [facility] did not show hydronephrosis. On admission, there was no need for urgent dialysis, and he had good urine output. - Received 8L IV fluids at [facility] - Patient has 22 liters out with 20 liters in. - Creat has improved to 2 from over 6 on admission. - Nephrology consult: Suspect polyuria may be related to post obstructive diuresis with subsequent solute diuresis from large volume saline replacement - will continue to monitor bMP. -Patient also treated for possible diabetes insipidus: RECEIVE DESMOPRESSINa but did not show any improvement (2) Hypotension: Per the ED provider at [facility], on admission, his systolic BP was in the 60s. After 8L IV fluids, he still had SBP in the 80s, and was started on pressors. Presently on 0.05 mcg/kg/min of Levophed with BP of 130/80. - Ddx includes his MAOI (noted side effect of all MAOIs), significant dehydration, septic shock from possible UTI or other infectious source. - Off pressors starla PM. Likely from vomue loss. - Follow up cultures from [facility] (urine and blood) (3) UTI (urinary tract infection): UA on 02/22 at [facility] showed signs of urinary infection. - Repeat UA here - Follow up [facility] culture - On levofloxacin (4) Hypertension: Hold lisinopril while hypotensive. (5) Schizophrenia: On variety of meds as outpatient. - Continue home meds apart from antipsychotic & valbenazine (Ingrezza) - Monitor schizophrenia symptoms (6) DVT prophylaxis: SCDs - Low risk per admission calculator Spent 35 minutes in management of patient. Included discussion with patient, chart review, discussion with consultants. Subjective Patient reports no events overnight. Patient reports feeling well, but does not understand why he is having such a large amount of urine output. Currently his only complaint is lightheadedness. 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 20 liters just in her shift. Patient has been requiring large amounts of IVF to keep up. Review of Systems Review of Systems: All systems reviewed & are unremarkable except as noted in HPI & below Physical Exam Physical Exam: Constitutional: WD/WN, vitals as above Eyes: EOM intact bilaterally; no conjunctival abnormality ENMT: external ear and nose normal, oropharynx normal Neck: trachea midline, no thyromegaly normal visual inspection Respiratory: normal respiratory effort, lungs clear to auscultation no respiratory distress Cardiovascular: RRR, no murmur, no edema Gastrointestinal (Abdomen): Inspection/Auscultation: abdomen normal to inspection; abdomen not distended Musculoskeletal: no cyanosis or clubbing, extremities motor strength 5/5 Skin: no rashes, warm and dry Neurologic: moves all extremities and awake Psychiatric: Orientation: alert, oriented to person and cooperative Results & Data Vital Signs (Past 12 Hours) Vital Signs Temp Pulse Resp BP Pulse Ox 02/23/19 18:00 105 H 19 120/66 97 02/23/19 17:00 104 H 18 102/68 97 02/23/19 16:00 100 H 24 120/65 95 02/23/19 15:00 37.1 C 100 H 16 136/67 94 02/23/19 14:00 105 H 18 89/56 L 95 02/23/19 13:17 113 H 22 117/66 96 02/23/19 12:00 37.2 C 99 H 16 131/74 96 02/23/19 11:00 101 H 20 133/112 H 95 02/23/19 10:00 104 H 21 126/63 93
[2019-02-24] MEDS: DULOXETINE HCL 30 MG CAP PO SCH ×2 (07:57→20:35)
[2019-02-24] MEDS: ASPIRIN 81 MG ECTAB PO SCH (07:57)
[2019-02-24] MEDS: PRAMIPEXOLE DIHYDROCHLO 0.5 MG TAB PO SCH (07:57)
[2019-02-24] MEDS: GABAPENTIN 600 MG TAB PO SCH ×3 (07:58→20:36)
[2019-02-24] MEDS: BuPROPion XL 150 MG TABCR PO SCH (07:58)
[2019-02-24] MEDS: QUETIAPINE FUMARATE 100 MG TABLET PO SCH ×3 (07:58→20:36)
[2019-02-24] MEDS: SODIUM CHLORIDE 0.45 % 1,000 ML IV SCH ×2 (07:59→19:31)
--- NOTE | 2019-02-24 09:26 | Critical Care Progress Note ---
Date of Service February 24, 2019 Assessment & Plan (1) Acute renal failure: Neuro- awake alert. schizophrenia continue quetiapine, gabapentin, bupropion. psych eval CV- HD stable Pulmonary- sat well on NC titrate off for sat ID- on levofloxacin for possible UTI but no clear infection favor short course Renal- Acute renal failure. obstructive vs medications. cr improving. UOP has been high but now improved. post obstructive or post ATN vs less likely diabetes insipidus due to medications GI- diet as tolerated Heme- heparin proph Endocrine- blood sugar controlled Dispo- ok to transfer out of ICU OOB Subjective complains of aching all over and headache. says he has back pain at home Physical Exam Physical Exam: Constitutional: Comfortable NAD HEENT: normocephalic atraumatic. MMM. CV: RRR nl s1,s2 no murmurs rubs or gallops Lungs: clear to auscultation bilaterally. no accessory muscle use Abd: soft nontender nondistended. normal bowel sounds Ext: no edema. no cyanosis, no clubbing Skin: warm dry Neuro: alert and oriented. moving all extremities Psych: normal mood and affect Results & Data Vital Signs (Past 12 Hours) Vital Signs Temp Pulse Resp BP Pulse Ox 02/24/19 06:00 110 H 18 96 02/24/19 04:00 37.2 C 116 H 20 138/78 96 02/24/19 02:00 109 H 19 109/49 L 96 02/24/19 00:00 36.8 C 114 H 16 112/60 96 02/23/19 22:00 115 H 20 118/59 L 98 Laboratory Results Laboratory Results - last 24 hr 02/23/19 02/23/19 02/23/19 11:11 12:11 20:25 Sodium 138 138 Potassium 5.0 4.5 Chloride 114 H 111 H Carbon Dioxide 17 L 22 Anion Gap 7.0 5.0 BUN 34 H 26 H Creatinine 2.01 H D 1.57 H D Est Cr Clr Drug Dosing 60.9 77.9 Est GFR ( Amer) 45.7 61.7 Est GFR (Non-Af Amer) 39.5 53.2 BUN/Creatinine Ratio 16.7 16.5 Glucose 141 H 121 H POC Glucose 100 H Calcium 7.2 L 7.4 L Phosphorus 2.0 L Magnesium 1.8 Urine Osmolality Ur Random Creatinine Ur Random Sodium Ur Random Potassium 02/23/19 02/23/19 02/23/19 23:37 Unknown Unknown Sodium Potassium Chloride Carbon Dioxide Anion Gap BUN Creatinine Est Cr Clr Drug Dosing Est GFR ( Amer) Est GFR (Non-Af Amer) BUN/Creatinine Ratio Glucose POC Glucose 136 H Calcium Phosphorus Magnesium Urine Osmolality 481 L Ur Random Creatinine 45.4 Ur Random Sodium 154 Ur Random Potassium 14.0 02/23/19 02/23/19 02/24/19 Unknown Unknown 06:23 Sodium Potassium Chloride Carbon Dioxide Anion Gap BUN Creatinine Est Cr Clr Drug Dosing Est GFR ( Amer) Est GFR (Non-Af Amer) BUN/Creatinine Ratio Glucose POC Glucose 94 Calcium Phosphorus Magnesium Urine Osmolality Ur Random Creatinine Ur Random Sodium Cancelled Ur Random Potassium Cancelled
--- NOTE | 2019-02-24 10:19 | Nephrology Progress Note ---
Date of Service February 24, 2019 Assessment & Plan (1) Polyuria: - Suspect polyuria may be related to post obstructive diuresis with subsequent solute diuresis from large volume saline replacement - suggest to decrease IV fluid to half normal saline at 75 mL/hour and can be discontinued once p.o. intake is adequate --Document strict I/O's --continue to hold lisinopril --monitor renal function and electrolyte daily Will follow (2) Acute renal failure: (3) Hypotension: - (4) UTI (urinary tract infection): - Culture results pending - Ceftriaxone (5) Schizophrenia: - Quetiapine and Ingrezza held - Consider psych consult to assist with management as patient medically stabilizes Subjective Caesar was seen and examined this morning. Was awake, alert denies any specific symptoms. Blood pressure stable. Renal function continues to improve, electrolyte acceptable. Remained polyuric but overall net positive. Physical Exam Constitutional: WD/WN, vitals as above Respiratory: normal respiratory effort, lungs clear to auscultation Cardiovascular: RRR, no murmur, no edema Neurologic: moves all extremities and awake Results & Data Vital Signs (Past 12 Hours) Vital Signs Temp Pulse Resp BP Pulse Ox 02/24/19 06:00 110 H 18 96 02/24/19 04:00 37.2 C 116 H 20 138/78 96 02/24/19 02:00 109 H 19 109/49 L 96 02/24/19 00:00 36.8 C 114 H 16 112/60 96
[2019-02-24 10:33] LABS: Partial Thromboplastin Time 26.4 Seconds (21.0-31.0); Prothrombin Time 10.6 Seconds (9.0-12.0)
[2019-02-24] MEDS ORDERED: LACTATED RINGER'S 1,000 ML IV ONE (11:17)
--- NOTE | 2019-02-24 11:27 | Communication Note ---
Date of Service: February 24, 2019 44 yo M admitted from [facility] in acute renal failure. We are consulted to evaluate psychiatric meds. I attempted to see the patient in ICU but he could not stay awake for the conversation. I will attempt again in the AM and in the meanwhile get OP records from his Psych provider to clarify meds/dosages. I see comments about the patient having been on an MAO-I, but I see no evidence of that in the external med history, so med clarification will be important. Nursing reports that he has not been a behavioral problems and I see no notes about hallucinations, so I believe he will be stable to wait another day for psych eval.
[2019-02-24] MEDS: LEVOFLOXACIN/D5W 750 MG/150 ML BAG IV SCH (11:46)
[2019-02-24] MEDS: OXYCODONE HCL IR 5 MG TAB (IMMEDIATE RELEASE) PO PRN ×2 (14:02→21:56)
[2019-02-24] MEDS: HEPARIN SOD 5,000 UNIT/0.5 ML VIAL SQ SCH ×2 (14:03→21:56)
--- NOTE | 2019-02-24 16:06 | Hospitalist Progress Note ---
Date of Service February 24, 2019 Assessment & Plan (1) Acute renal failure: Thought to be pre-renal or ATN, as patient appeared clinically dry at [facility] ED. BUN:Cr ratio was 10:1, and FeNa was 2.0%, both indicating intrinsic disease. Renal u/s on 02/22 at [facility] did not show hydronephrosis. On admission, there was no need for urgent dialysis, and he had good urine output. Urine eosinophils were negative, and CK was not elevated substantially. - Nephrology consulted - Appreciate help - Had polyuria on 02/23; initially thought to be diabetes insipidus; however, more likely to be post-obstructive diuresis vs. solute load diuresis. - Presently appears euvolemic on exam. (2) Hypotension: Per the ED provider at [facility], on admission, his systolic BP was in the 60s. After 8L IV fluids, he still had SBP in the 80s, and was started on pressors. Presently on 0.05 mcg/kg/min of Levophed with BP of 130/80. - Likely MAOI (noted side effect of all MAOIs) & significant dehydration - Pressors weaned on 02/23 - Continue IV fluids (3) UTI (urinary tract infection): UA on 02/22 at [facility] showed signs of urinary infection. - Follow up [facility] culture - Continue levofloxacin for now (4) Hypertension: Hold lisinopril while hypotensive. (5) Schizophrenia: On variety of meds as outpatient. - Continue home meds apart from valbenazine (Ingrezza) - Monitor schizophrenia symptoms - Psych consult (6) DVT prophylaxis: SCDs - Low risk per admission calculator Subjective No major complaints this morning. Sleeping, but easily arousable. No concerns. Reports no fevers/chills, chest pain, shortness of breath, abdominal pain, nausea, or vomiting. Review of Systems Constitutional: + fever, + body aches, + fatigue, + weakness and + anorexia; no chills and no sweats Physical Exam Constitutional: WD/WN, vitals as above Eyes: EOM intact bilaterally; no conjunctival abnormality ENMT: external ear and nose normal, oropharynx normal Neck: trachea midline, no thyromegaly normal visual inspection Respiratory: normal respiratory effort, lungs clear to auscultation no respiratory distress Cardiovascular: RRR, no murmur, no edema Gastrointestinal (Abdomen): Inspection/Auscultation: abdomen normal to inspection; abdomen not distended Musculoskeletal: no cyanosis or clubbing, extremities motor strength 5/5 Skin: no rashes, warm and dry Neurologic: moves all extremities and awake Psychiatric: Orientation: alert, oriented to person and cooperative Results & Data Vital Signs (Past 12 Hours) Vital Signs Temp Pulse Pulse Resp BP Pulse Ox 02/24/19 12:39 140 H 14 134/70 95 02/24/19 12:00 37.5 C 137 H 20 93 02/24/19 11:01 138 H 27 H 107/52 L 91 02/24/19 11:00 138 H 20 95 02/24/19 10:01 133 H 22 101/77 96 02/24/19 10:00 128 H 24 96 02/24/19 09:01 122 H 17 145/77 H 95 02/24/19 09:00 119 H 34 H 72 L 02/24/19 08:02 122 H 19 128/70 94 02/24/19 08:00 37.7 C H 118 H 24 93 02/24/19 07:00 133 H 21 97 02/24/19 06:00 110 H 18 96
[2019-02-24] MEDS: PROPRANOLOL HCL LA 80 MG CAPCR PO SCH (16:37)
[2019-02-24] MEDS: ACETAMINOPHEN 325 MG TAB PO PRN (19:31)
[2019-02-25 04:43] LABS: Hematocrit (blood only) 39.3 % (42-52); Hemoglobin 13.6 g/dL (14.0-18.0); Mean Corpuscular Hgb Conc 34.6 g/dL (32-36); Mean Corpuscular Volume 88.5 fL (80-100); Mean Platelet Volume 9.6 fL (7.4-10.4); Platelet Count 155 K/uL (130-400); RDW Coefficient of Variation 13.3 % (11.5-14.5); RDW Standard Deviation 43.2 fL (36.4-46.3); Red Blood Count 4.44 M/uL (4.7-6.1); White Blood Count 7.73 K/uL (4.8-10.8)
[2019-02-25 05:08] LABS: Albumin Level 2.9 gm/dl (3.4-5.0); BUN Creatinine Ratio 11.6 (10-20); Calcium 8.5 mg/dl (8.5-10.1); Creatinine Clr Calc Pharmacy 124.8 ml/min; Est GFR (Non-African American) 94.1; Magnesium 1.8 mg/dl (1.8-2.4); Phosphorus 2.5 mg/dl (2.5-4.9); Potassium 4.4 mmol/L (3.5-5.1)
[2019-02-25] MEDS: HEPARIN SOD 5,000 UNIT/0.5 ML VIAL SQ SCH ×3 (05:34→20:39)
[2019-02-25] MEDS: SODIUM CHLORIDE 0.45 % 1,000 ML IV SCH ×2 (05:34→08:53)
[2019-02-25] MEDS: OXYCODONE HCL IR 5 MG TAB (IMMEDIATE RELEASE) PO PRN ×3 (06:04→21:49)
[2019-02-25] MEDS: DULOXETINE HCL 30 MG CAP PO SCH ×2 (07:51→20:37)
[2019-02-25] MEDS: PROPRANOLOL HCL LA 80 MG CAPCR PO SCH (07:51)
[2019-02-25] MEDS: PRAMIPEXOLE DIHYDROCHLO 0.5 MG TAB PO SCH (07:51)
[2019-02-25] MEDS: ASPIRIN 81 MG ECTAB PO SCH (07:51)
[2019-02-25] MEDS: QUETIAPINE FUMARATE 100 MG TABLET PO SCH ×3 (07:51→20:37)
[2019-02-25] MEDS: GABAPENTIN 600 MG TAB PO SCH ×3 (07:51→20:37)
[2019-02-25] MEDS: BuPROPion XL 150 MG TABCR PO SCH (07:51)
--- NOTE | 2019-02-25 08:47 | Critical Care Progress Note ---
Date of Service February 25, 2019 Assessment & Plan (1) Acute renal failure: Neuro- awake alert. schizophrenia continue quetiapine, gabapentin, bupropion. psych eval CV- HD stable. HR better today was tachycardic but had been off her home propranolol Pulmonary- sat well on NC titrate off for sat >92% ID- on levofloxacin for possible UTI but no clear infection favor short course Renal- Acute renal failure. obstructive vs medications. cr improving. UOP had been high but now improved. post obstructive or post ATN vs less likely diabetes insipidus due to medications GI- diet as tolerated Heme- heparin proph Endocrine- blood sugar controlled Dispo- ok to transfer out of ICU OOB Subjective still with his chronic pain but improved since yesterday. Physical Exam Physical Exam: Constitutional: Comfortable NAD HEENT: normocephalic atraumatic. CV: RRR nl s1,s2 no murmurs rubs or gallops Lungs: clear to auscultation bilaterally. no accessory muscle use Abd: soft nontender nondistended. normal bowel sounds Ext: no edema. no cyanosis, no clubbing Skin: warm dry Neuro: alert and oriented. moving all extremities Psych: normal mood and affect Results & Data Vital Signs (Past 12 Hours) Vital Signs Temp Pulse Resp BP Pulse Ox 02/25/19 07:12 37.4 C 87 20 150/85 H 97 02/25/19 07:00 93 H 16 02/25/19 06:01 86 18 133/85 99 02/25/19 06:00 82 20 98 02/25/19 05:01 36.5 C 92 H 12 134/84 98 02/25/19 05:00 92 H 18 100 02/25/19 04:01 90 16 108/61 93 02/25/19 04:00 89 20 94 02/25/19 03:01 91 H 12 134/71 96 02/25/19 03:00 94 H 23 96 02/25/19 02:01 94 H 18 146/87 H 99 02/25/19 02:00 92 H 24 98 02/25/19 01:00 100 H 18 138/76 96 02/25/19 00:01 98 H 20 104/76 95 02/25/19 00:00 98 H 20 92 02/24/19 23:09 104 H 15 133/70 96 02/24/19 23:08 98 04/29/19 22:01 36.5 C 111 H 17 139/84 94 02/24/19 22:00 112 H 23 95 02/24/19 21:01 116 H 16 144/70 H 95 02/24/19 21:00 119 H 19 95
[2019-02-25] MEDS: OXYCODONE HCL 10 MG TABCR (OXYCONTIN) PO SCH ×2 (09:08→20:37)
--- NOTE | 2019-02-25 10:32 | Nephrology Progress Note ---
Date of Service February 25, 2019 Assessment & Plan (1) Polyuria: - Suspect polyuria may be related to post obstructive diuresis with subsequent solute diuresis from large volume saline replacement - suggest discontinuing IV fluid if p.o. intake remained adequate --Document strict I/O's --lisinopril can be resumed on discharge --monitor renal function and electrolyte daily while inpatient Will sign off, no further nephrology follow-up needed at this time, please contact if any further concern (2) Acute renal failure: (3) Hypotension: - (4) UTI (urinary tract infection): - Culture results pending - Ceftriaxone (5) Schizophrenia: - Quetiapine and Ingrezza held - Consider psych consult to assist with management as patient medically stabilizes Subjective Caesar was seen and examined in his room this morning. Overall he is feeling well, denies any symptom. Acute kidney injury resolved. Continues to have high urine output however electrolyte remain acceptable. No evidence of hyponatremia. Physical Exam Constitutional: WD/WN, vitals as above Respiratory: normal respiratory effort, lungs clear to auscultation Cardiovascular: RRR, no murmur, no edema Neurologic: moves all extremities and awake Results & Data Vital Signs (Past 12 Hours) Vital Signs Temp Pulse Pulse Resp BP BP Pulse Ox 02/25/19 08:55 36.6 C 75 19 155/81 H 97 02/25/19 07:12 37.4 C 87 20 150/85 H 97 02/25/19 07:00 93 H 16 02/25/19 06:01 86 18 133/85 99 02/25/19 06:00 82 20 98 02/25/19 05:01 36.5 C 92 H 12 134/84 98 02/25/19 05:00 92 H 18 100 02/25/19 04:01 90 16 108/61 93 02/25/19 04:00 89 20 94 02/25/19 03:01 91 H 12 134/71 96 02/25/19 03:00 94 H 23 96 02/25/19 02:01 94 H 18 146/87 H 99 02/25/19 02:00 92 H 24 98 02/25/19 01:00 100 H 18 138/76 96 02/25/19 00:01 98 H 20 104/76 95 02/25/19 00:00 98 H 20 92 02/24/19 23:09 104 H 15 133/70 96 02/24/19 23:08 98
--- NOTE | 2019-02-25 13:08 | Psychiatric Consultation ---
Date of Consultation February 25, 2019 Impression / Recommendations Impression 44-year-old man transferred from [facility] with acute renal failure. Medical conditions are resolving and we have been consulted to evaluate psychiatric medications. Initially Ingrezza and Seroquel had been held but Seroquel has been reinitiated. Although I see no indication in the literature that Ingrezza can contribute to renal failure, he was feeling sleepy and had multiple falls on this and does not want to return to it. His mental illness is currently stable without hallucinations or mood disturbance. At this point I have no medication recommendations. A copy of this consult and the discharge summary should be sent to Dr. Badillo at [facility] for his review. The patient anticipates that he may be discharged in the very near future. (1) Schizophrenia: 02/25 - Continue current meds - Patient declines return to [facility] for TD - Discharge summary should be sent to Dr. Badillo at [facility] - No medication recommendations at this time. Present on Admission?: Yes Inventory Assets Strengths: Good outpatient support, lives with parents Needs: Healthy coping strategies Risk Factors Assessment Male: Yes : Yes Do You Have Access To A Gun?: Yes Health Problems: Yes Mental Health Diagnoses: Yes Substance Use Disorders: No Previous Attempt: Yes Previous Psychiatric Hospitalization: Yes Protective Factors Assessment : No Responsible for Young Children: No Employed: No Stable Relationships: Yes Supportive Family: Yes CPT Code 60794 Psych History Identifying Data 44 yo male transferred from [place] where he presented in renal failure and hypotension. We are consulted to evaluate psychiatric meds. Information is gathered from outside records, the patient and the EHR, all are considered to be reliable. Chief Complaint "I'm pretty good.". History of Present Illness Patient is a 44-year-old male from [facility] who initially presented to the [facility] where he was found to be in renal failure and hypotensive. They administered up to 8 L of [place] and systolic BP only improved into the 80s. 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 Nephrology was consulted here and it is their belief that this may be related to post obstructive diuresis with subsequent solute diuresis from large volume saline replacement. Psychiatrically, he sees Dr. Badillo for schizophrenia, depression and tardive dyskinesia. His most recent visit with Dr. Badillo had been on December 12 and was doing relatively well at that time. Most recent medication addition had been Ingrezza for tardive dyskinesia which outpatient notes indicate was helpful for his lower extremity symptoms. He did however feel extremely fatigued and it is noted that he was experiencing falls at home, something that can also be a side effect of this medication. At the time I see the patient he is seated at the bedside. He is alert and cooperative. He indicates that his mood is "not too bad" and feels that he is doing well enough to go home. He admits again that he was sleeping all the time when he was at home but since here in the hospital that has improved. He reports good appetite and denies symptoms of thought disorder currently including auditory or visual hallucinations were distorted thinking. He endorses chronic anxiety saying that he has "always worried about everything". He lives with his parents, feels supported by them and enjoys that they have been visiting him every day here. He denies any suicidal or homicidal ideation. It is his belief that the Ingrezza was stopped thinking that it contributed to his current condition. He has no interest in going back on it. He believes that his next appointment with Dr. Badillo may be on March 21 Past Psychiatric History Previous Psych History: Dr. Badillo at [facility] Current Psychiatric Diagnosis: schizophrenia, major depressive disorder, tardive dyskinesia Previous Psych Admissions: 2 boys, [facility], [facility] Do You Have Access To A Gun?: Yes History of Previous Suicide Attempt: Yes Describe Attempts in the Past: 3, last in 2014 Past Medication Trials: Prolixin Propranolol Geodon Haldol Paxil Ativan Remeron Allergies Allergy/AdvReac Type Severity Reaction Status Date / Time Penicillins Allergy Unknown UNKNOWN Unverified 12/03/09 04:18 Home Medications Home Medications Medication Instructions Recorded Confirmed Type Ingrezza 80 mg PO DAILY 02/22/19 02/22/19 History Prilosec OTC 20 mg PO DAILY 02/22/19 02/22/19 History aspirin 81 mg PO DAILY 02/22/19 02/22/19 History bupropion HCl 150 mg PO DAILY 02/22/19 02/22/19 History diphenhydramine HCl 25 mg PO TID PRN 02/22/19 02/22/19 History duloxetine 30 mg PO HS 02/22/19 02/22/19 History duloxetine 60 mg PO HS 02/22/19 02/22/19 History gabapentin 800 mg PO TID 02/22/19 02/22/19 History guanfacine 2 mg PO QAM 02/22/19 02/22/19 History lisinopril 20 mg PO DAILY 02/22/19 02/22/19 History oxycodone 5 mg PO Q12H PRN 02/22/19 02/22/19 History oxycodone myristate [Xtampza ER] 13.5 mg PO Q12H PRN 02/22/19 02/22/19 History propranolol 80 mg PO DAILY 02/22/19 02/22/19 History quetiapine 400 mg PO HS 02/22/19 02/22/19 History Family History Noncontributory Substance Abuse History History of marijuana, LSD, cocaine, alcohol. No drugs or alcohol and 3-1/2 years since living with his parents Personal History Living Arrangements: Home (With parents) Childhood: Grew up in the [facility]. Is on disability for mental health reasons. Employment Status: Disabled Marital Status: Number Of Children: To Beliefs That Will Affect Care: None History of Legal Problems: Denies Patient History Medical History Depression Schizophrenia Family History Father Hypertension Social History Preferred Language: Albanian Communication Ability: Effective Button Breaker Required: Yes Beliefs That Will Affect Care: None Current Living Situation: Parent Other Information That Helps Us Care for You: No Feels Safe at Home: Yes Safety Concerns: Feels Safe At This Time Smoking Status: Former smoker Hx Alcohol Use: No Hx Substance Use: No Physical Exam Psychiatric: Orientation: alert and cooperative Apperance: appropriately dressed and appropriately groomed Eye Contact: good eye contact Motor Behavior: no abnormal motor movements Speech: normal rate/rhythm/volume of speech Affect: + blunted affect Mood: + anxious mood; no depressed mood "Not too bad" Thought Process: goal directed thought process Thought Content: reality based without delusions Suicidal Thoughts: denies suicidal thoughts Homicidal Thoughts: denies homicidal thoughts Hallucinations: no auditory hallucinations and no visual hallucinations Cognition: recent memory grossly intact, remote memory grossly intact, attention grossly intact and language grossly intact Estimated Intelligence: consistent with education level Insight: + fair insight Judgement: + fair judgement Vital Signs (Past 24 Hours): Last Vital Signs Temp 36.6 C 02/25/19 08:55 Pulse 75 02/25/19 08:55 Resp 19 02/25/19 08:55 BP 155/81 H 02/25/19 08:55 Pulse Ox 97 02/25/19 08:55 Review of Systems All systems reviewed & are unremarkable except as noted in HPI & below Constitutional: + malaise "Achy" Results & Data Medications Administered Acetaminophen (Tylenol) 650 mg PO Q4H PRN PRN Reason: pain/fever Stop: 03/24/19 17:13 Last Admin: 02/24/19 19:31 Dose: 650 mg Documented by: [id number] Admin: 02/23/19 07:39 Dose: 650 mg Documented by: [id number] Aspirin (Ecotrin Ectab) 81 mg PO DAILY [facility] Stop: 03/25/19 08:59 Last Admin: 02/25/19 07:51 Dose: 81 mg Documented by: [id number] Admin: 02/24/19 07:57 Dose: 81 mg Documented by: [id number] Admin: 02/23/19 07:37 Dose: 81 mg Documented by: [id number] Bupropion HCl (Wellbutrin-Xl) 150 mg PO QAM [facility] Stop: 03/25/19 08:59 Last Admin: 02/25/19 07:51 Dose: 150 mg Documented by: [id number] Admin: 02/24/19 07:58 Dose: 150 mg Documented by: [id number] Admin: 02/23/19 07:37 Dose: 150 mg Documented by: [id number] Duloxetine HCl (Cymbalta) 30 mg PO BID [facility] Stop: 03/24/19 20:59 Last Admin: 02/25/19 07:51 Dose: 30 mg Documented by: [id number] Admin: 02/24/19 20:35 Dose: 30 mg Documented by: [id number] Admin: 02/24/19 07:57 Dose: 30 mg Documented by: [id number] Admin: 02/23/19 20:23 Dose: 30 mg Documented by: [id number] Admin: 02/23/19 07:37 Dose: 30 mg Documented by: [id number] Admin: 02/22/19 21:54 Dose: 30 mg Documented by: [id number] Gabapentin (Neurontin) 600 mg PO TID [facility] Stop: 03/25/19 13:59 Last Admin: 02/25/19 07:51 Dose: 600 mg Documented by: [id number] Admin: 02/24/19 20:36 Dose: 600 mg Documented by: [id number] Admin: 02/24/19 14:02 Dose: 600 mg Documented by: [id number] Admin: 02/24/19 07:58 Dose: 600 mg Documented by: [id number] Admin: 02/23/19 20:23 Dose: 600 mg Documented by: [id number] Admin: 02/23/19 13:18 Dose: 600 mg Documented by: [id number] Heparin Sodium (Porcine) (Heparin Sodium (Porcine)) 5,000 units SQ Q8 [facility] Stop: 03/26/19 13:59 Last Admin: 02/25/19 05:34 Dose: 5,000 units Documented by: [id number] Cosigned by: [id number] Admin: 02/24/19 21:56 Dose: 5,000 units Documented by: [id number] Cosigned by: [id number] Admin: 02/24/19 14:03 Dose: 5,000 units Documented by: [id number] Cosigned by: [id number] Levofloxacin/Dextrose (Levaquin/D5w) 750 mg in 150 mls @ 100 mls/hr IV Q48H [facility]; Protocol Stop: 03/06/19 11:59 Last Infusion: 02/24/19 13:20 Dose: 0 mls/hr Documented by: [id number] Admin: 02/24/19 11:46 Dose: 100 mls/hr Documented by: [id number] Oxycodone HCl (Roxicodone Immediate Rel) 5 mg PO Q8H PRN PRN Reason: Pain Stop: 03/09/19 12:36 Last Admin: 02/25/19 06:04 Dose: 5 mg Documented by: [id number] Admin: 02/24/19 21:56 Dose: 5 mg Documented by: [id number] Admin: 02/24/19 14:02 Dose: 5 mg Documented by: [id number] Admin: 02/23/19 22:20 Dose: 5 mg Documented by: [id number] Admin: 02/23/19 13:18 Dose: 5 mg Documented by: [id number] Oxycodone HCl (Oxycontin) 10 mg PO Q12H [facility] Stop: 03/11/19 08:59 Last Admin: 02/25/19 09:08 Dose: 10 mg Documented by: [id number] Propranolol HCl (Inderal La) 80 mg PO QAM [facility] Stop: 03/26/19 14:44 Last Admin: 02/25/19 07:51 Dose: 80 mg Documented by: [id number] Admin: 02/24/19 16:37 Dose: 80 mg Documented by: [id number] Quetiapine Fumarate (Seroquel) 100 mg PO TID [facility] Stop: 03/25/19 13:59 Last Admin: 02/25/19 07:51 Dose: 100 mg Documented by: [id number] Admin: 02/24/19 20:36 Dose: 100 mg Documented by: [id number] Admin: 02/24/19 14:02 Dose: 100 mg Documented by: [id number] Admin: 02/24/19 07:58 Dose: 100 mg Documented by: [id number] Admin: 02/23/19 20:24 Dose: 100 mg Documented by: [id number] Admin: 02/23/19 13:18 Dose: 100 mg Documented by: [id number]
[2019-02-25] MEDS: PANTOprazole 40 MG TAB PO SCH (13:37)
--- NOTE | 2019-02-25 13:58 | Hospitalist Progress Note ---
Date of Service February 25, 2019 Assessment & Plan (1) Acute renal failure: Thought to be pre-renal or ATN, as patient appeared clinically dry at [facility] ED. BUN:Cr ratio was 10:1, and FeNa was 2.0%, both indicating intrinsic disease. Renal u/s on 02/22 at [facility] did not show hydronephrosis. On admission, there was no need for urgent dialysis, and he had good urine output. Urine eosinophils were negative, and CK was not elevated substantially. - Nephrology consulted - Appreciate help - Had polyuria on 02/23; initially thought to be diabetes insipidus; however, more likely to be post-obstructive diuresis vs. solute load diuresis. - Presently appears euvolemic on exam. - By 02/25, Cr back to baseline. Nephrology signing off. (2) Hypotension: Per the ED provider at [facility], on admission, his systolic BP was in the 60s. After 8L IV fluids, he still had SBP in the 80s, and was started on pressors. Was on 0.05 mcg/kg/min of Levophed with BP of 130/80 on admission. - Likely MAOI (noted side effect of all MAOIs) & significant dehydration - Pressors weaned on 02/23 - Stopped IV fluids on 02/25 per nephrology (3) UTI (urinary tract infection): UA on 02/22 at [facility] showed signs of urinary infection. - Follow up [facility] culture - Continue levofloxacin for now (4) Hypertension: Held lisinopril while hypotensive. - On 02/25, BP normalized. (5) Schizophrenia: On variety of meds as outpatient. - Continue home meds apart from valbenazine (Ingrezza) - Monitor schizophrenia symptoms - Psych consult - appreciate recs (6) DVT prophylaxis: SCDs - Low risk per admission calculator Subjective Feeling better this morning. No major complaints. Reports no fevers/chills, chest pain, shortness of breath, abdominal pain, nausea, or vomiting. Review of Systems Constitutional: + fever, + body aches, + fatigue, + weakness and + anorexia; no chills and no sweats Physical Exam Constitutional: WD/WN, vitals as above Eyes: EOM intact bilaterally; no conjunctival abnormality ENMT: external ear and nose normal, oropharynx normal Neck: trachea midline, no thyromegaly normal visual inspection Respiratory: normal respiratory effort, lungs clear to auscultation no respiratory distress Cardiovascular: RRR, no murmur, no edema Gastrointestinal (Abdomen): Inspection/Auscultation: abdomen normal to ins pection; abdomen not distended Musculoskeletal: no cyanosis or clubbing, extremities motor strength 5/5 Skin: no rashes, warm and dry Neurologic: moves all extremities and awake Psychiatric: Orientation: alert, oriented to person and cooperative Results & Data Vital Signs (Past 12 Hours) Vital Signs Temp Pulse Pulse Resp BP BP Pulse Ox 02/25/19 08:55 36.6 C 75 19 155/81 H 97 02/25/19 07:12 37.4 C 87 20 150/85 H 97 02/25/19 07:00 93 H 16 02/25/19 06:01 86 18 133/85 99 02/25/19 06:00 82 20 98 02/25/19 05:01 36.5 C 92 H 12 134/84 98 02/25/19 05:00 92 H 18 100 02/25/19 04:01 90 16 108/61 93 02/25/19 04:00 89 20 94 02/25/19 03:01 91 H 12 134/71 96 02/25/19 03:00 94 H 23 96 02/25/19 02:01 94 H 18 146/87 H 99 02/25/19 02:00 92 H 24 98
[2019-02-26] MEDS: HEPARIN SOD 5,000 UNIT/0.5 ML VIAL SQ SCH ×2 (06:02→14:46)
[2019-02-26 07:19] LABS: Hematocrit (blood only) 40.2 % (42-52); Hemoglobin 14.2 g/dL (14.0-18.0); Mean Corpuscular Hgb Conc 35.3 g/dL (32-36); Mean Corpuscular Volume 86.6 fL (80-100); Mean Platelet Volume 9.3 fL (7.4-10.4); Platelet Count 160 K/uL (130-400); RDW Coefficient of Variation 13.4 % (11.5-14.5); RDW Standard Deviation 42.2 fL (36.4-46.3); Red Blood Count 4.64 M/uL (4.7-6.1); White Blood Count 9.63 K/uL (4.8-10.8)
[2019-02-26 07:55] LABS: BUN Creatinine Ratio 9.1 (10-20); Est GFR (African American) 94.8; Est GFR (Non-African American) 81.8; Magnesium 1.9 mg/dl (1.8-2.4); Potassium 4.3 mmol/L (3.5-5.1)
[2019-02-26 07:57] LABS: Phosphorus 3.2 mg/dl (2.5-4.9)
[2019-02-26] MEDS: OXYCODONE HCL 10 MG TABCR (OXYCONTIN) PO SCH (09:04)
[2019-02-26] MEDS: QUETIAPINE FUMARATE 100 MG TABLET PO SCH ×2 (09:04→14:31)
[2019-02-26] MEDS: BuPROPion XL 150 MG TABCR PO SCH (09:05)
[2019-02-26] MEDS: GABAPENTIN 600 MG TAB PO SCH ×2 (09:05→14:31)
[2019-02-26] MEDS: PANTOprazole 40 MG TAB PO SCH (09:05)
[2019-02-26] MEDS: DULOXETINE HCL 30 MG CAP PO SCH (09:05)
[2019-02-26] MEDS: ASPIRIN 81 MG ECTAB PO SCH (09:05)
[2019-02-26] MEDS: PROPRANOLOL HCL LA 80 MG CAPCR PO SCH (09:05)
[2019-02-26] MEDS: OXYCODONE HCL IR 5 MG TAB (IMMEDIATE RELEASE) PO PRN (11:35)
[2019-02-26] MEDS: LEVOFLOXACIN/D5W 750 MG/150 ML BAG IV SCH (11:36)
--- NOTE | 2019-02-26 17:41 | Discharge Summary ---
Date of Service February 26, 2019 Admission HPI Per Admitting Provider Patient is a 44-year-old male from [facility] who initially presented to the [facility] where he was found to be in renal failure and hypotensive. They administered up to 8 L of [place] and systolic BP only improved into the 80s. He was therefore referred to our hospital as they did not have a integrated circuits inspector in their system. Nephrology was consulted here and it is their belief that this may be related to post obstructive diuresis with subsequent solute diuresis from large volume saline replacement. Psychiatrically, he sees Dr. Badillo for schizophrenia, depression and tardive dyskinesia. His most rec ent visit with Dr. Badillo had been on December 12 and was doing relatively well at that time. Most recent medication addition had been Ingrezza for tardive dyskinesia which outpatient notes indicate was helpful for his lower extremity symptoms. He did however feel extremely fatigued and it is noted that he was experiencing falls at home, something that can also be a side effect of this medication. At the time I see the patient he is seated at the bedside. He is alert and cooperative. He indicates that his mood is "not too bad" and feels that he is doing well enough to go home. He admits again that he was sleeping all the time when he was at home but since here in the hospital that has improved. He reports good appetite and denies symptoms of thought disorder currently including auditory or visual hallucinations were distorted thinking. He endorses chronic anxiety saying that he has "always worried about everything". He lives with his parents, feels supported by them and enjoys that they have been visiting him every day here. He denies any suicidal or homicidal ideation. It is his belief that the Ingrezza was stopped thinking that it contributed to his current condition. He has no interest in going back on it. He believes that his next appointment with Dr. Badillo may be on March 21 Principal Diagnosis Renal failure; low blood pressure Discharge Exam Constitutional WD/WN, vitals as above Eyes EOM intact bilaterally; no conjunctival abnormality ENMT external ear and nose normal, oropharynx normal Neck trachea midline, no thyromegaly normal visual inspection Respiratory normal respiratory effort, lungs clear to auscultation no respiratory distress Cardiovascular RRR, no murmur, no edema Gastrointestinal (Abdomen) Inspection/Auscultation: abdomen normal to inspection; abdomen not distended Musculoskeletal no cyanosis or clubbing, extremities motor strength 5/5 Skin no rashes, warm and dry Neurologic moves all extremities and awake Psychiatric Orientation: alert, oriented to person and cooperative Discharge Data Allergies Allergy/AdvReac Type Severity Reaction Status Date / Time Penicillins Allergy Unknown UNKNOWN Unverified 12/03/09 04:18 Consultations 02/22/19 17:14 Consult Sweep Molder Routine Consult Nephrology Routine 02/23/19 12:35 Consult Psychiatry Routine Hospital Course (1) Acute renal failure: Thought to be pre-renal or ATN, as patient appeared clinically dry at [place] ED. BUN:Cr ratio was 10:1, and FeNa was 2.0%, both indicating intrinsic disease. Renal u/s on 02/22 at [place] did not show hydronephrosis. On admission, there was no need for urgent dialysis, and he had good urine output. Urine eosinophils were negative, and CK was not elevated substantially. - Had polyuria on 02/23; thought to be post-obstructive diuresis vs. solute load diuresis. - By 02/25, Cr back to baseline. Nephrology signed off. Final thought was post- obstructive injury. (2) Hypotension: Per the ED provider at [facility], on admission, his systolic BP was in the 60s. After 8L IV fluids, he still had SBP in the 80s, and was started on pressors. Was on 0.05 mcg/kg/min of Levophed with BP of 130/80 on admission. - Pressors weaned on 02/23 - Stopped IV fluids on 02/25 per nephrology - Likely MAOI (noted side effect of all MAOIs) & significant dehydration (3) UTI (urinary tract infection): UA on 02/22 at [facility] showed signs of urinary infection. Never had any symptoms of dysuria, polyuria, fever. - Follow up [facility] culture - Finished levofloxacin inpatient (4) Hypertension: Held lisinopril while hypotensive. - On 02/25, BP normalized. - Discharged off lisinopril until seen by outpatient doctors. (5) Schizophrenia: On variety of meds as outpatient. - Continued home meds apart from valbenazine (Ingrezza) - No schizophrenia symptoms - Psych consulted - Brick that he should continue management apart from the Ingrezza until seen by his outpatient psychiatrist. - Started on low-dose ropinerole for his dyskinesia/restless leg syndrome. (6) DVT prophylaxis: SCDs - Low risk per admission calculator Total Time Total Time Spent Total Time Spent (In Minutes): 35 Total Time Includes: Examination of the Patient, Discharge Planning and Medication Reconciliation Discharge Plan Discharge Items Patient Disposition: Home - Self-Care Reason For Visit: HYPOTENSION, ACUTE RENAL FAILURE Discharge Diagnosis: Low blood pressure, kidney injury Discharge Goals: Decrease discomfort, Improve disease control and Improve function Activity: Resume your previous activity Non-emergency contact: Primary Care Provider and Psychiatrist Call non-emergency contact if: you have any medication questions, your symptoms worsen, your pain is not controlled and your temperature is above 100.5 Follow-up/Referrals: Janna Jalloh C.R.NDiannaPDianna [Primary Care Provider] - 03/04/19 10:00 am (Please, follow up at [facility] with Janna GARCIA on SundayMarch 04 at 10:00 am. *If you need to change this appointment, call the office at [phone].) Diet: Regular Addtl Provider Instructions: Mr. Velasquez, You were admitted to the hospital for low blood pressure and kidney problems. We believe the kidney problem was caused by urinary retention, possibly due to the Ingrezza medication that you took. We gave you fluids and used a catheter to help relieve pressure on the bladder. Your kidney function returned to completely normal, and your blood pressure also returned to normal. Please do not take Ingrezza to avoid any repeat of this episode. Instead of the Ingrezza, we started you on a low-dose of a medication called pramipexole. Take this just before bedtime to help you sleep with the restless leg/dyskinesia. Be sure to discuss this new medication with your psychiatrist to be sure they are aware you are on it. Finally, we stopped your lisinopril (a blood pressure medication) because your blood pressure was low-normal in the hospital, and it can affect your kidneys. Please hold this medication until you see your PCP. Please follow up with your PCP and psychiatrist to discuss your medications. Prescriptions: New pramipexole 0.5 mg Tablet 0.5 mg PO HS Qty: 30 RF: 0 Continued gabapentin 800 mg tablet 800 mg PO TID RF: 0 propranolol 80 mg capsule,extended release 24 hr 80 mg PO DAILY RF: 0 oxycodone 5 mg tablet 5 mg PO Q12H PRN (Reason: Pain) RF: 0 bupropion HCl 150 mg tablet extended release 24 hr 150 mg PO DAILY RF: 0 duloxetine 30 mg capsule,delayed release(DR/EC) 30 mg PO HS RF: 0 duloxetine 60 mg capsule,delayed release(DR/EC) 60 mg PO HS RF: 0 quetiapine 400 mg tablet 400 mg PO HS RF: 0 guanfacine 2 mg tablet extended release 24 hr 2 mg PO QAM RF: 0 Xtampza ER 13.5 mg capsule,sprinkle,ER 12hr tmprr 13.5 mg PO Q12H PRN (Reason: Pain) RF: 0 Prilosec OTC 20 mg 20 mg PO DAILY RF: 0 aspirin 81 mg 81 mg PO DAILY RF: 0 diphenhydramine HCl 25 mg 25 mg PO TID PRN (Reason: Itching) RF: 0 Discontinued lisinopril 20 mg tablet 20 mg PO DAILY RF: 0 Ingrezza 80 mg 80 mg PO DAILY RF: 0 Stand-Alone Forms: [facility] Discharge Orders: Discharge Order (Routine); Ordered 02/26/19 Ordered By: Ruy Grande Admission Data Admit Date/Time: 02/22/19 16:47 Attending Provider: Ruy Grande Admit Provider: Ruy Grande Primary Care Provider: Janna Jalloh Other Providers: Andrea Medrano ; Peterson Slaughter ; Génesis Weiner Service: Telemetry Other Interventions: Discharge Summary Assessment (RN) Last Done: 02/26/19 14:45 DC Date/Time DO NOT enter until pt leaves facility: 02/26/19 14:54
[2019-02-26] MEDS ORDERED: PRAMIPEXOLE DIHYDROCHLO 0.5 MG TAB PO SCH (21:00)
[2019-02-28] MEDS ORDERED: levoFLOXacin 750 MG TAB PO SCH (11:00)
== END 2019-02-26 14:54 | disposition home or self-care (01) | DRG 682 ==
LOC: 1E 16:47 → SUATTDRO 16:47 → 2S 02-25 08:37